=== PATIENT | male | born 1960 | race Caucasian/White ===

== ENCOUNTER 2017-11-15 00:02 | Inpatient (IN) | payer MEDICARE ==
[2017-11-15] MEDS ORDERED: ALBUTEROL SULFATE 0.083% NEB 2.5 MG/3 ML AMPUL NEB ONE (00:05)
--- NOTE | 2017-11-15 00:07 | ER Document Report ---
ED General - General Stated Complaint: RESPIRATORY DISTRESS Time Seen by Provider: 11/15/17 00:05 Cannot obtain history due to: Unstable vital signs, Altered mental status Notes: Patient is a 57-year-old male with a past medical history of COPD, continues to smoke, hypertension morbid obesity chronic low back pain, currently treated with hydromorphone 16 mg daily for his chronic low back pain who presents confused, hypoxic and in respiratory distress. EMS reports that the noted he was unconscious, lying on the ground and appeared cyanotic. On EMS arrival patient was saturating in the low 80s, difficult to wake. In route to the hospital he received steroids, nebulizer treatments and was placed on CPAP. History is otherwise limited secondary to the patient's condition at time of presentation. TRAVEL OUTSIDE OF THE [place] IN LAST 30 DAYS: No - Related Data Allergies/Adverse Reactions: No Known Allergies Allergy (Verified 11/15/17 00:15) Past Medical History - General Information source: Patient - Social History Smoking Status: Current Every Day Smoker Frequency of alcohol use: None Drug Abuse: None Lives with: Spouse/Significant other Family History: Reviewed & Not Pertinent - Past Medical History Cardiac Medical History: Reports: Hx Hypercholesterolemia, Hx Hypertension Pulmonary Medical History: Reports: Hx Asthma Endocrine Medical History: Reports: Hx Diabetes Mellitus Type 2, Hx Hypothyroidism - Immunizations Hx Diphtheria, Pertussis, Tetanus Vaccination: Yes Review of Systems - Review of Systems Notes: Constitutional: Negative for fever. HENT: Negative for sore throat. Eyes: Negative for visual changes. Cardiovascular: Negative for chest pain. Respiratory: Positive for shortness of breath. Gastrointestinal: Negative for abdominal pain, vomiting or diarrhea. Genitourinary: Negative for dysuria. Musculoskeletal: Negative for back pain. Skin: Negative for rash. Neurological: Negative for headaches, weakness or numbness. 10 point ROS negative except as marked above and in HPI. Physical Exam - Vital signs Vitals: Pulse Ox 93 11/15/17 00:03 Interpretation: Hypertensive, Tachycardic, Hypoxic Notes: PHYSICAL EXAMINATION: GENERAL: Somewhat lethargic but alert and oriented 4. Falls asleep easily. HEAD: Atraumatic, normocephalic. EYES: Pupils are pinpoint, minimally reactive bilaterally, extraocular movements intact, sclera anicteric, conjunctiva are normal. ENT: nares patent, oropharynx clear without exudates. Moist mucous membranes. NECK: Normal range of motion, supple without lymphadenopathy LUNGS: Poor air movement in all lung boyd, coarse expiratory wheezing in all lung boyd. HEART: Regular tachycardia without murmurs ABDOMEN: Morbidly obese abdomen, soft, nontender, normoactive bowel sounds. No guarding, no rebound. No masses appreciated. EXTREMITIES: Normal range of motion, trace edema in the bilateral lower extremities. No cyanosis. NEUROLOGICAL: No focal neurological deficits. Moves all extremities spontaneously and on command. PSYCH: Somewhat somnolent SKIN: Warm, Dry, normal turgor, no rashes or lesions noted. Course - Re-evaluation Re-evalutation: 11/15/17 00:06 Patient presents in acute respiratory distress, tight air movement in all lung boyd, wheezing throughout consistent with a severe COPD exacerbation. Patient is mentating, alert and oriented 4 at time of evaluation. He was admitted transition to our BiP and started on continuous in-line nebulizers. Patient has very received Solu-Medrol prior to arrival. He is received 2 duo nebulizers. 2 g of magnesium will be administered over 20 minutes. Chest x- ray and labs will be obtained. traffic monitor specialist has been applied. Patient will be assessed at regular intervals as he is very high risk for decompensation and need for intubation. 11/15/17 00:24 Patient despite being hypoxic and having coarse air movement in all lung boyd was noted to be breathing only 16-18 times per minute and having variable mental status. His pupils are noted to be pinpoint. I therefore administered 0.4 mg of naloxone slowly in 0.04 mg intervals. After 0.2 mg of naloxone was administered patient's pupils normalized he woke up and began breathing much more normal rate. His mental status cleared. At this point it appears the patient has had a COPD exacerbation but was unfortunately not able to compensate for respiratory perspective due to respiratory suppression from a heavy dose of hydromorphone which is apparently been prescribed to him by a pain management physician. Repeat lung examination continues to show coarse air movement with wheezing throughout although patient is now breathing much more efficiently pulling tidal volumes of 600 mL per breath. Will continue to monitor closely. 11/15/17 01:16 Attempted to trial the patient off BiPAP as he was pulling appropriate tidal volumes but he continued to be hypoxic and appear to be hypoventilating. He has been replaced back on BiPAP. His initial blood gases worrisome with pH of 7.18, PCO2 86.9 consistent with a respiratory acidosis. I believe this is also likely in the context of hypoventilation from narcotic overdose. He has not required repeat doses of naloxone. Will repeat a blood gas. 11/15/17 01:50 Blood gas shows improvement of his respiratory acidosis. Awaiting basic metabolic panel and then will plan for hospitalization. Patient's work of breathing is overall much improved he is tolerating BiPAP well, continues to have some faint expiratory wheezing in all lung boyd but much improved air movement. 11/15/17 02:13 I have discussed this case with Dr. Madera who has accepted the patient for admission. - Vital Signs Vital signs: Temp Pulse Resp BP Pulse Ox 97.6 F 13 112/77 92 11/15/17 00:07 11/15/17 01:31 11/15/17 01:31 11/15/17 01:31 - Laboratory Result Diagrams: 11/15/17 00:04 11/15/17 01:00 Laboratory results interpreted by me: 11/15/17 11/15/17 11/15/17 00:04 00:05 01:00 WBC 12.8 H RDW 18.3 H Seg Neutrophils % 78.5 H Lymphocytes % 12.9 L Absolute Neutrophils 10.1 H VBG pH 7.18 L* VBG pCO2 86.9 H* BUN 21 H Glucose 203 H 11/15/17 01:35 WBC RDW Seg Neutrophils % Lymphocytes % Absolute Neutrophils VBG pH 7.23 L VBG pCO2 73.0 H* BUN Glucose - Diagnostic Test Radiology reviewed: Image reviewed, Reports reviewed Radiology results interpreted by me: 11/15/17 01:52 Chest x-ray: Patchy infiltrates bilaterally. Critical Care Note - Critical Care Note Total time excluding time spent on procedures (mins): 38 Comments: Critical care time spent obtaining history from patient or surrogate, discussions with consultants, development of treatment plan with patient or surrogate, evaluation of patient's response to treatment, examination of patient , ordering and performing treatments and interventions, ordering and review of laboratory studies, re-evaluation of patient's condition, ordering and review of radiographic studies and review of old charts Discharge - Discharge Clinical Impression: COPD exacerbation, Respiratory distress Narcotic overdose Qualifiers: Encounter type: initial encounter Injury intent: accidental or unintentional Qualified Code(s): T40.601A - Poisoning by unspecified narcotics, accidental ( unintentional), initial encounter Condition: Fair Disposition: ADMITTED INPATIENT [facility] Admitted: Telemetry
[2017-11-15] MEDS ORDERED: NALOXONE HCL INJ/PF 0.4 MG/1 ML SDV ONE (00:12)
[2017-11-15] MEDS: MAGNESIUM SULFATE/D5W 1 GM/100 ML RTUPB IV SCH ×2 (00:12→00:26)
[2017-11-15 00:14] LABS: ABSOLUTE BASOPHILS # (AUTO) 0.1 10^3/uL (0.0-0.2); ABSOLUTE EOSINOPHILS # (AUTO) 0.2 10^3/uL (0.0-0.6); ABSOLUTE LYMPHOCYTES (AUTO) 1.7 10^3/uL (0.5-4.7); ABSOLUTE MONOCYTES (AUTO) 0.9 10^3/uL (0.1-1.4); ABSOLUTE NEUT (AUTO) 10.1 10^3/uL (1.7-8.2); BASOPHILS % (AUTO) 0.6 % (0-2); EOSINOPHILS % (AUTO) 1.2 % (0-6); HEMATOCRIT 45.8 % (37.9-51.0); HEMOGLOBIN 14.9 g/dL (13.5-17.0); LYMPHOCYTES % (AUTO) 12.9 % (13-45); MEAN CORPUSCULAR HEMOGLOBIN 29.6 pg (27.0-33.4); MEAN CORPUSCULAR HGB CONC 32.4 g/dL (32.0-36.0); MEAN CORPUSCULAR VOLUME 91 fl (80-97); MONOCYTES % (AUTO) 6.8 % (3-13); PLATELET COUNT 176 10^3/uL (150-450); RED BLOOD COUNT 5.01 10^6/uL (4.35-5.55); RED CELL DISTRIBUTION WIDTH 18.3 % (11.5-14.0); SEGMENTED NEUTROPHILS % (AUTO) 78.5 % (42-78); TOTAL CELLS COUNTED % (AUTO) 100 %; WHITE BLOOD COUNT 12.8 10^3/uL (4.0-10.5)
[2017-11-15] MEDS ORDERED: NALOXONE HCL INJ/PF 0.4 MG/1 ML SDV IV ONE (00:24)
--- NOTE | 2017-11-15 00:26 | RADIOLOGY REPORT (SQ) ---
EXAM DESCRIPTION: CHEST SINGLE VIEW COMPLETED DATE/TIME: 11/15/2017 12:13 am REASON FOR STUDY: sob COMPARISON: Chest x-ray 10/11/2014 EXAM PARAMETERS: NUMBER OF VIEWS: One view. TECHNIQUE: Single frontal radiographic view of the chest acquired. RADIATION DOSE: NA LIMITATIONS: EKG leads are overlying the patient's chest. FINDINGS: LUNGS AND PLEURA: There is mild bilateral interstitial thickening. Ground-glass opacities at the bilateral lung bases. No pleural effusion or pneumothorax MEDIASTINUM AND HILAR STRUCTURES: No masses. Contour normal. HEART AND VASCULAR STRUCTURES: The heart is enlarged. There is central vascular congestion. BONES: No acute findings. HARDWARE: None in the chest. IMPRESSION: Cardiomegaly with central vascular congestion and mild interstitial edema. Bibasilar gr ound-glass opacities, may represent atelectasis or pneumonia. Radiographic follow-up recommended. TECHNICAL DOCUMENTATION: JOB ID: [id number] [employer]- All Rights Reserved
[2017-11-15 00:37] LABS: NT PRO BNP 321 pg/mL (5-900)
[2017-11-15 00:42] LABS: VENOUS BLOOD BASE EXCESS 0.7 mmol/L
[2017-11-15 00:45] LABS: VENOUS BLOOD PCO2 86.9 mmHg (35-63); VENOUS BLOOD PH 7.18 (7.30-7.42)
[2017-11-15 00:46] LABS: TROPONIN I < 0.012 ng/mL
[2017-11-15] MEDS ORDERED: CEFTRIAXONE 1 GM/D5W RTU 1 GM/50 ML RTUPB IV ONE (01:15)
[2017-11-15] MEDS ORDERED: AZITHROMYCIN 250 MG TABLET PO ONE (01:16)
[2017-11-15] MEDS ORDERED: CEFTRIAXONE INJ 1000 MG VIAL ONE (01:24)
[2017-11-15 01:43] LABS: VENOUS BLOOD BASE EXCESS -0.2 mmol/L; VENOUS BLOOD HCO3 29.6 mmol/L (20-32); VENOUS BLOOD PH 7.23 (7.30-7.42)
[2017-11-15 01:47] LABS: ANION GAP 7 (5-19); BLOOD UREA NITROGEN 21 mg/dL (7-20); CALCIUM 9.4 mg/dL (8.4-10.2); CARBON DIOXIDE 28 mmol/L (22-30); CHLORIDE 103 mmol/L (98-107); GLUCOSE 203 mg/dL (75-110); POTASSIUM 4.9 mmol/L (3.6-5.0); SODIUM 138.1 mmol/L (137-145)
[2017-11-15] MEDS ORDERED: NORMAL SALINE 1000 ML 500 ML IV ONE (01:52)
[2017-11-15] MEDS ORDERED: MAG HYDROX/AL HYDROX/SIMETH SUSP 30 ML UDCUP PO PRN (02:13)
[2017-11-15] MEDS ORDERED: DEXTROSE 40% GEL 15 GM TUBE PO PRN ×2 (02:13)
[2017-11-15] MEDS ORDERED: GLUCAGON,HUMAN RECOMB 1 MG INJ IM PRN (02:13)
[2017-11-15] MEDS ORDERED: DEXTROSE 50%-WATER 25 GM/50 ML DISP.SYRIN IV PRN ×2 (02:13)
[2017-11-15] MEDS ORDERED: INSULIN LISPRO 100 UNIT/ML 3 ML VIAL SUBCUT PRN (02:13)
[2017-11-15] MEDS ORDERED: NALOXONE HCL INJ/PF 0.4 MG/1 ML SDV IV PRN (02:17)
[2017-11-15] MEDS ORDERED: CHLORPHENIRAMINE MALEATE 4 MG TABLET PO ONE (02:21)
[2017-11-15] MEDS ORDERED: CHLORPHENIRAMINE MALEATE 4 MG TABLET ONE (04:33)
[2017-11-15] MEDS ORDERED: FLUTICASONE NASAL SPRAY 50 MCG/SPRY 120 SPRAY/16 GM ONE (04:33)
--- NOTE | 2017-11-15 05:47 | PDOC H&P ---
History of Present Illness Admission Date/PCP: 11/15/17 02:36 Patient complains of: Altered mental status History of Present Illness: LEXIS THOMSON is a 57 year old male with a past medical history of morbid obesity, tobacco dependence, COPD, obstructive sleep apnea, and chronic pain prescribed 16 mg of Dilaudid daily. Patient discovered by on the floor, unresponsive and cyanotic. EMS documents pulse oxygenation of 80% he receives CPAP, oxygen, albuterol and Atrovent, Solu-Medrol in route to the emergency department. In the emergency department he is found to have myoclonus, apnea and pinpoint pupils. He receives Narcan improving his responsiveness briefly but falls back to sleep. Blood gas reveals hypercapnia in the 80s and is referred to the hospitalist for admission. Patient denies recent change of medications, chest pain, palpitations, nausea or vomiting. He states he currently feels well!! Past Medical History Cardiac Medical History: Reports: Hyperlipidema, Hypertension Pulmonary Medical History: Reports: Asthma, Chronic Obstructive Pulmonary Disease (COPD), Sleep Apnea Endocrine Medical History: Reports: Diabetes Mellitus Type 2, Hypothyroidism, Obesity Psychiatric Medical History: Reports: Alcohol Dependency, Tobacco Dependency Social History Information Source: Patient, [facility] Records Lives with: Spouse/Significant other Smoking Status: Current Every Day Smoker Frequency of Alcohol Use: Social - 4-5 beers per day, no history of DTs Drugs: None - Advance Directive Resuscitation Status: Full Code Family History Family History: COPD Parental Family History Reviewed: Yes Children Family History Reviewed: Yes Sibling(s) Family History Reviewed.: Yes Medication/Allergy Home Medications: Albuterol Sulfate [Proair HFA Inhalation Aerosol 8.5 gm MDI] 1 puff .ROUTE PRN PRN 10/11/14 Levothyroxine Sodium 137 mcg PO DAILY 10/11/14 Lisinopril 10 mg PO DAILY 10/11/14 Lorazepam [Ativan 1 mg Tablet] 1 mg PO QID #8 tab 10/11/14 Metformin HCl [Glucophage 500 mg Tablet] 500 mg .ROUTE BID 10/11/14 Simvastatin 40 mg PO DAILY 10/11/14 Allergies/Adverse Reactions: No Known Allergies Allergy (Verified 11/15/17 00:15) Review of Systems ROS unobtainable: Due to mental status Physical Exam Vital Signs: Temp Pulse Resp BP Pulse Ox 99.7 F 13 128/74 H 96 02/04/18 04:20 11/15/17 05:01 11/15/17 05:01 11/15/17 05:01 General appearance: PRESENT: cooperative, disheveled, mild distress, morbidly obese Head exam: PRESENT: atraumatic, normocephalic Eye exam: PRESENT: conjunctiva pink, EOMI, PERRLA. ABSENT: scleral icterus Ear exam: PRESENT: normal external ear exam Mouth exam: PRESENT: moist, tongue midline Neck exam: ABSENT: carotid bruit, JVD, lymphadenopathy, thyromegaly Respiratory exam: PRESENT: clear to auscultation roselia, decreased breath sounds, tachypnea. ABSENT: rales, rhonchi, wheezes Cardiovascular exam: PRESENT: RRR. ABSENT: diastolic murmur, rubs, systolic murmur Pulses: PRESENT: normal dorsalis pedis pul Vascular exam: PRESENT: normal capillary refill GI/Abdominal exam: PRESENT: normal bowel sounds, soft. ABSENT: distended, guarding, mass, organolmegaly, rebound, tenderness Rectal exam: PRESENT: deferred Extremities exam: PRESENT: full ROM. ABSENT: calf tenderness, clubbing, pedal edema Neurological exam: PRESENT: altered, oriented to person, oriented to place, oriented to time, oriented to situation, CN II-XII grossly intact. ABSENT: motor sensory deficit Psychiatric exam: PRESENT: appropriate affect, normal mood. ABSENT: homicidal ideation, suicidal ideation Skin exam: PRESENT: dry, intact, warm. ABSENT: cyanosis, rash Results Impressions: Chest X-Ray 11/15/17 00:06 IMPRESSION: Cardiomegaly with central vascular congestion and mild interstitial edema. Bibasilar ground-glass opacities, may represent atelectasis or pneumonia. Radiographic follow-up recommended. Assessment & Plan - Diagnosis (1) Narcotic overdose Qualifiers: Encounter type: initial encounter Injury intent: accidental or unintentional Qualified Code(s): T40.601A - Poisoning by unspecified narcotics , accidental (unintentional), initial encounter Is this a current diagnosis for this admission?: Yes Plan: No history of prescription medication abuse or previous episode of respiratory failure, opiate weaning initiated to avoid shreya withdrawal. Supportive care (2) COPD exacerbation Is this a current diagnosis for this admission?: Yes Plan: With significant myoclonus and hypercapnia. BiPAP and avoid sedation to optimize respiratory drive. Albuterol and Atrovent, Flonase, incentive spirometry ordered. (3) Respiratory distress Is this a current diagnosis for this admission?: Yes Plan: Secondary to #1, education for BiPAP during sleep and opiate weaning - Time Time Spent: 30 to 50 Minutes
[2017-11-15] MEDS ORDERED: HEPARIN SOD (PORCINE) 5,000 UNIT/ML 1 ML SYRINGE SUBCUT SCH (06:00)
[2017-11-15 06:07] LABS: APPEARANCE,URINE SLIGHTLY-CLOUDY; BILIRUBIN,URINE NEGATIVE (NEGATIVE); COLOR,URINE YELLOW; GLUCOSE, URINE NEGATIVE (NEGATIVE); KETONES,URINE NEGATIVE (NEGATIVE); LEUKOCYTE ESTERASE,URINE NEGATIVE (NEGATIVE); NITRITE,URINE NEGATIVE (NEGATIVE); PROTEIN,URINE 30 mg/dL (NEGATIVE); URINE SPECIFIC GRAVITY 1.021; UROBILINOGEN,URINE NEGATIVE mg/dL (<2.0)
[2017-11-15 06:14] LABS: URINE AMPHETAMINES SCREEN NEGATIVE; URINE BARBITURATES SCREEN NEGATIVE; URINE BENZODIAZEPINES SCREEN NEGATIVE; URINE COCAINE SCREEN NEGATIVE; URINE MARIJUANA (THC) SCREEN NEGATIVE; URINE METHADONE SCREEN NEGATIVE; URINE PHENCYCLIDINE SCREEN NEGATIVE
[2017-11-15] MEDS: IPRATROPIUM/ALBUTEROL 0.5-2.5 MG/3 ML AMPUL NEB SCH ×3 (07:51→20:14)
--- NOTE | 2017-11-15 08:35 | EKG REPORT ---
SEVERITY:- OTHERWISE NORMAL ECG - SINUS TACHYCARDIA : Confirmed by: Román Galarza MD 15-Nov-2017 08:34:54
[2017-11-15] MEDS ORDERED: LISINOPRIL 10 MG TABLET PO SCH (10:00)
[2017-11-15] MEDS ORDERED: SIMVASTATIN 40 MG TABLET PO SCH (10:00)
[2017-11-15] MEDS ORDERED: DOCUSATE SODIUM 100 MG CAPSULE PO SCH (10:00)
[2017-11-15] MEDS ORDERED: FLUTICASONE NASAL SPRAY 50 MCG/SPRY 120 SPRAY/16 GM NASL SCH (10:00)
[2017-11-15] MEDS ORDERED: (PENDING PHARMACY ID) (Levothyroxine Sodium [Levothyroxine Sodium] 137 MCG) PO SCH (10:00)
[2017-11-15 10:17] LABS: HEMATOCRIT 41.1 % (37.9-51.0); HEMOGLOBIN 13.4 g/dL (13.5-17.0); MEAN CORPUSCULAR HEMOGLOBIN 29.6 pg (27.0-33.4); MEAN CORPUSCULAR HGB CONC 32.5 g/dL (32.0-36.0); MEAN CORPUSCULAR VOLUME 91 fl (80-97); PLATELET COUNT 177 10^3/uL (150-450); RED BLOOD COUNT 4.52 10^6/uL (4.35-5.55); RED CELL DISTRIBUTION WIDTH 17.5 % (11.5-14.0); WHITE BLOOD COUNT 12.2 10^3/uL (4.0-10.5)
[2017-11-15 10:19] LABS: VENOUS BLOOD BASE EXCESS 1.9 mmol/L; VENOUS BLOOD HCO3 29.4 mmol/L (20-32); VENOUS BLOOD PCO2 58.1 mmHg (35-63); VENOUS BLOOD PH 7.32 (7.30-7.42)
[2017-11-15] MEDS ORDERED: METHYLPREDNISOLONE INJ 125 MG/2 ML SDV IV ONE (12:00)
[2017-11-15] MEDS ORDERED: METHYLPREDNISOLONE INJ 125 MG/2 ML SDV IV SCH (14:00)
--- NOTE | 2017-11-15 15:13 | PDOC DISCHARGE SUMMARY ---
General - Admit/Disc Date/PCP Admission Date/Primary Care Provider: 11/15/17 02:36 Discharge Date: 11/15/17 - Discharge Diagnosis (1) COPD exacerbation Is this a current diagnosis for this admission?: Yes Summary: Likely due to PNA which will be treated with cefdenir and azithromycin, COPD exacerbation to be treated with prednisone taper and duonebs, in addition to ABX as noted. (2) Narcotic overdose Is this a current diagnosis for this admission?: Yes Summary: Pt is prescribed dilaudid 4 mg po QID. He sometimes takes his dose before prescribed but states that he doenst ususally take more that his total 4 x 4 mg doses daily. Every once in a while he runs out of his meds 1 days before his next refill. I have recommended that he take 2 mg QID for now and talk to his doctor about a permanent dose reduction vs. titration off of opioids in favor of other pain control modalities. (3) Pneumonia Is this a current diagnosis for this admission?: Yes Summary: Will DC on azithromycin 500 mg po daily x 5 days and cefdinir 300 mg po q12 hrs x 7 days. (4) Respiratory distress Is this a current diagnosis for this admission?: Yes Summary: Due to PNA, COPD with exacerbation, tobacco use disorder, possible opioid misuse. Has improved. Now on [place] O2 his baseline 4 L, VBG repeat is pending. Will treat as above. - Additional Information Resuscitation Status: Full Code Discharge Diet: Cardiac, Diabetic Discharge Activity: Balance Activity w/Rest Prescriptions: Cefdinir [Omnicef 300 mg Capsule] 1 cap PO BID 7 Days #14 capsule Doxycycline Hyclate 100 mg PO BID 7 Days #14 capsule Prednisone 20 mg PO DAILY 5 Days #5 tablet Sennosides [Senna] 8.6 mg PO BID 30 Days #60 tablet Home Medications: Cefdinir [Omnicef 300 mg Capsule] 1 cap PO BID 7 Days #14 capsule 11/15/17 Doxycycline Hyclate 100 mg PO BID 7 Days #14 capsule 11/15/17 Fluoxetine HCl [Prozac] 40 mg PO DAILY 11/15/17 Fluticasone Propionate [Flonase Nasal [place] 50 Mcg/[place] 16 gm] 2 spray NASL Q12 spray.pump 11/15/17 Ipratropium/Albuterol Sulfate [Duoneb 3 ml Ampul] 3 ml NEB RTQ6 vial.neb Levothyroxine Sodium [Levothyroxine Sodium] 137 mcg PO DAILY 11/15/17 Levothyroxine Sodium [Synthroid] 150 mcg PO DAILY 11/15/17 Metformin HCl [Glucophage] 500 mg PO BID 11/15/17 Olanzapine [Olanzapine Odt] 10 mg PO DAILY 11/15/17 Prednisone 20 mg PO DAILY 5 Days #5 tablet 11/15/17 Sennosides [Senna] 8.6 mg PO BID 30 Days #60 tablet 11/15/17 Simvastatin [Zocor 40 mg Tablet] 40 mg PO DAILY 11/15/17 Simvastatin [Zocor 40 mg Tablet] 40 mg PO DAILY tablet 11/15/17 History of Present Illness History of Present Illness: LEXIS THOMSON is a 57 year old male Hospital Course Hospital Course: This is a 57 year old man with morbid obesity, COPD with exacerbation, tobacco use disorder, opioid use and with acute CAP who was admitted to hospitalist. He was brought to ED by EMS after being found obtunded at home by and 18 year old son. Received narcan which caused him to awaken, received treatment for COPD and PNA. Now patient is insisting on leaving AMA. After long discussion with patient he started to become somnolent again, bipap replaced and after several hours he has now awakened to what his states is normal. His CO2 has imrpoved to what is prob close to his baseline. His is able to ambulate around the ED normally. He has been off of bipap for about 2 hours and is on his home O2. He continues to insist on leaving AMA. He has decisional capacity, is going home with spouse who says she will be with be with him today and tonight. Also, she will now manage his dialaudid and he agrees. They agree to seek care with PCP tomorrow. They will call EMS if he worsens. He is being DCed with ABX for PNA, steroids for COPD, nicoderm patch RX. I reluctantly DC him AMA and have counseled the patient and to the best of my ability about safety going forward. Physical Exam Vital Signs: Temp Pulse Resp BP Pulse Ox 99.7 F 84 15 126/77 H 92 11/15/17 04:20 11/15/17 07:51 11/15/17 08:01 11/15/17 08:01 11/15/17 08:01 Intake & Output 11/14/17 11/15/17 11/16/17 06:59 06:59 06:59 Intake Total 1000 Output Total 650 Balance 350 General appearance: PRESENT: no acute distress, cooperative, disheveled, morbidly obese Head exam: PRESENT: atraumatic, normocephalic Eye exam: PRESENT: conjunctival injection, EOMI, periorbital swelling, PERRLA. ABSENT: scleral icterus Ear exam: PRESENT: normal external ear exam. ABSENT: bleeding Mouth exam: PRESENT: moist, neck supple Neck exam: ABSENT: lymphadenopathy Respiratory exam: PRESENT: decreased breath sounds, prolonged expiratory phas, rhonchi, symmetrical, unlabored, wheezes. ABSENT: accessory muscle use, chest wall tenderness, retraction, stridor, tachypnea Cardiovascular exam: PRESENT: RRR. ABSENT: systolic murmur Pulses: PRESENT: normal radial pulses Vascular exam: PRESENT: normal capillary refill GI/Abdominal exam: PRESENT: normal bowel sounds, soft, other - obesity, protuberant abdomen. ABSENT: ascites, diminished bowel sounds, distended, firm , guarding, rebound, rigid, tenderness Rectal exam: PRESENT: deferred Extremities exam: PRESENT: other - chronic venous stasis changes Neurological exam: PRESENT: alert, awake, oriented to person, oriented to place , oriented to time, oriented to situation, CN II-XII grossly intact. ABSENT: motor sensory deficit Psychiatric exam: PRESENT: other - frustrated/aguila/defensive over costs of hospitalization Skin exam: PRESENT: dry, intact, warm. ABSENT: cyanosis, erythema, mottled, rash Results Laboratory Results: 11/15/17 05:48 Urine Color YELLOW Urine Appearance SLIGHTLY-CLOUDY Urine pH 5.[address] [place] 1.021 Urine Protein 30 H Urine Glucose (UA) NEGATIVE Urine Ketones NEGATIVE Urine Blood MODERATE H Urine Nitrite NEGATIVE Ur Leukocyte Esterase NEGATIVE Urine WBC (Auto) 0 Urine RBC (Auto) 2 EKG Comments: sinus tachy Impressions: Chest X-Ray 11/15/17 00:06 IMPRESSION: Cardiomegaly with central vascular congestion and mild interstitial edema. Bibasilar ground-glass opacities, may represent atelectasis or pneumonia. Radiographic follow-up recommended. Qualifiers VTE patient discharged on overlapping Therapy?: No Stroke Pt being discharged on Anti-thrombolytic therapy?: No Stroke Pt being discharged on Anti-coagulation therapy?: No Stroke Pt being discharged on Statins?: No NV Pt being discharged on Aspirin therapy?: No NV Pt being discharged on Statins?: No NV Pt discharged ACEI/ARBS?: No HF Pt being discharged on ACEI for LVEF less than 40%?: No HF Pt being discharged on ARBS for LVEF less than 40%?: No HF Pt with Afib discharged with Warfarin?: No HF Pt discharged on evidence-based Beta Otis:: No Plan Discharge Plan: 1. acute hypoxemic hypercarbic respiratory failure: improved, due to PNA, COPD with exacerbation, opiate use 2. PNA: bilat lower lobes: DC on cefdinir and doxycycline, 7 days 3. COPD with exacerbation: performed tobacco cessation counseling, will DC with nicoderm patch, DC with ABX , steroids taper and pt to continue bronchodilators at home 4. leukocytosis: improved: likley due to PNA and acute inflammatory issues, DC on ABX for PNA 5. opiod use and misuse: have counseled to use dilaudid 2 mg QID vs his 4 mg QID for now. Time Spent: Greater than 30 Minutes
[2017-11-15 15:41] VITALS: BP 127/67
[2017-11-16] MEDS: IPRATROPIUM/ALBUTEROL 0.5-2.5 MG/3 ML AMPUL NEB SCH (02:12)
== END 2017-11-15 15:43 | disposition left against medical advice (07) | DRG 917 ==
LOC: ER 00:02 → EH 02:36
PROVIDERS: ADMIT Internal Medicine; ATTEND Internal Medicine
PROC: 5A09357 Assistance with Respiratory Ventilation, Less than 24 Consecutive Hours, Continuous Positive Airway Pressure (ICD-10-PCS; principal; 2017-11-15)
DX: T40.2X1A Poisoning by other opioids, accidental (unintentional), initial encounter (principal); J18.9 Pneumonia, unspecified organism; J96.02 Acute respiratory failure with hypercapnia; J44.1 Chronic obstructive pulmonary disease with (acute) exacerbation; Z68.42 Body mass index [BMI] 45.0-49.9, adult; E66.01 Morbid (severe) obesity due to excess calories; G47.33 Obstructive sleep apnea (adult) (pediatric); G89.29 Other chronic pain; I10 Essential (primary) hypertension; E78.5 Hyperlipidemia, unspecified; E11.9 Type 2 diabetes mellitus without complications; F10.20 Alcohol dependence, uncomplicated; F17.210 Nicotine dependence, cigarettes, uncomplicated; M54.5 Low back pain; Z79.891 Long term (current) use of opiate analgesic; Y92.009 Unspecified place in unspecified non-institutional (private) residence as the place of occurrence of the external cause
CPT/HCPCS: 36415; 71045; 80048; 80307; 81001; 82803; 83880; 84443; 84484; 85025; 85027; 87040; 93005; 93010; 94640; 94660; 96365; 96367; 96375; 99291; J0696; J1644; J2310; J2930; J3475; J7030; J7620

== ENCOUNTER 2017-12-31 11:12 | Emergency (ER) | payer MEDICARE ==
[2017-12-31] MEDS ORDERED: KETOROLAC TROMETHAMINE 60 MG/2 ML SDV IM ONE (12:03)
[2017-12-31] MEDS ORDERED: DEXAMETHASONE SOD PHOS INJ 10 MG/1 ML VIAL IM ONE (12:03)
--- NOTE | 2017-12-31 12:44 | RADIOLOGY REPORT (SQ) ---
EXAM DESCRIPTION: KNEE LEFT 4 VIEW COMPLETED DATE/TIME: 12/31/2017 12:29 pm REASON FOR STUDY: increased pain COMPARISON: None. NUMBER OF VIEWS: Four views. TECHNIQUE: AP, lateral, and both oblique radiographic images acquired of the left knee. LIMITATIONS: None. FINDINGS: MINERALIZATION: Normal. BONES: No acute fracture or dislocation. No worrisome bone lesions. JOINT: Mild medial compartment and patellofemoral compartment joint space narrowing. No knee joint e ffusion. No calcified intra-articular loose bodies. SOFT TISSUES: No soft tissue swelling. No radio-opaque foreign body. OTHER: No other significant finding. IMPRESSION: No acute fracture. 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
--- NOTE | 2017-12-31 12:55 | ER Document Report ---
ED Extremity Problem, Lower - General Chief Complaint: Knee Pain Stated Complaint: LEG KNEE PAIN Time Seen by Provider: 12/31/17 11:32 Mode of Arrival: Ambulatory Information source: Patient Notes: 67-year-old male presents to ED for complaint of left knee pain. He states he has had pain in his knee for years it is just been worse for the last week or so. He states it is painful to walk. He states it is swollen and has been taken ibuprofen at home and had helped. He is able to walk with a steady gait. He was treated with Toradol and Decadron in the emergency room and sent for an x-ray. He denies any injury in the fall or any redness. TRAVEL OUTSIDE OF THE [place] IN LAST 30 DAYS: No - HPI Patient complains to provider of: Pain, Swelling Location: Knee - Left Occurred: Last week - Has a history of chronic pain to this knee Onset/Duration: Persistent Quality of pain: Sharp, Throbbing Severity: Severe Pain Level: 5 Recent injury: No Associated symptoms: Painful ambulation Exacerbated by: Movement, Walking Relieved by: Nothing - Related Data Allergies/Adverse Reactions: No Known Allergies Allergy (Verified 11/15/17 00:15) Past Medical History - General Information source: Patient - Social History Smoking Status: Current Every Day Smoker Cigarette use (# per day): Yes - 15 cigarettes a day Chew tobacco use (# tins/day): No Smoking Education Provided: Yes - 4 minutes Frequency of alcohol use: Occasional Drug Abuse: None Occupation: Retired construction Lives with: Family Family History: Arthritis, COPD, Thyroid Disfunction. denies: CAD, CVA, DM, Hyperlipidemia, Hypertension, Malignancy Patient has suicidal ideation: No Patient has homicidal ideation: No - Past Medical History Cardiac Medical History: Reports: Hx Hypercholesterolemia, Hx Hypertension Pulmonary Medical History: Reports: Hx Asthma, Hx COPD, Hx Sleep Apnea EENT Medical History: Reports: None Neurological Medical History: Reports: None Endocrine Medical History: Reports: Hx Diabetes Mellitus Type 2, Hx Hypothyroidism Renal/ Medical History: Reports: None Malignancy Medical History: Reports None Musculoskeltal Medical History: Reports Hx Arthritis, Reports Hx Musculoskeletal Deformity - Degenerative disc disease, Reports Hx Musculoskeletal Trauma Skin Medical History: Reports None Psychiatric Medical History: Reports: None Traumatic Medical History: Reports: Hx Fractures - Left elbow Infectious Medical History: Reports: None Past Surgical History: Reports: Hx Oral Surgery - [place] teeth, Hx Orthopedic Surgery - ORIF left elbow and was removed from surgery lumbar area - Immunizations Immunizations up to date: Yes Hx Diphtheria, Pertussis, Tetanus Vaccination: Yes Review of Systems - Review of Systems Constitutional: No symptoms reported EENT: No symptoms reported Cardiovascular: No symptoms reported Respiratory: No symptoms reported Gastrointestinal: No symptoms reported Genitourinary: No symptoms reported Male Genitourinary: No symptoms reported Musculoskeletal: Joint pain - Left knee, Joint swelling Skin: No symptoms reported Hematologic/Lymphatic: No symptoms reported Neurological/Psychological: No symptoms reported -: Yes All other systems reviewed and negative Physical Exam - Vital signs Vitals: Temp Pulse Resp BP Pulse Ox 97.3 F 89 14 128/82 H 93 12/31/17 11:30 12/31/17 11:30 12/31/17 11:30 12/31/17 11:30 12/31/17 11:30 Interpretation: Normal - General General appearance: Appears well, Alert - HEENT Head: Normocephalic, Atraumatic Eyes: Normal Pupils: PERRL - Respiratory Respiratory status: No respiratory distress Chest status: Nontender Breath sounds: Normal Chest palpation: Normal - Cardiovascular Rhythm: Regular Heart sounds: Normal auscultation Murmur: No - Abdominal Inspection: Normal Distension: No distension Bowel sounds: Normal Tenderness: Nontender Organomegaly: No organomegaly - Back Back: Normal, Nontender - Extremities General upper extremity: Normal inspection, Nontender, Normal color, Normal ROM , Normal temperature General lower extremity: Normal inspection, Normal color, Normal temperature. No: Liz's sign Knee: Tender, Pain with ROM, Patellar tendon intact, Tender joint line, Other - Right knee actually larger than left left knee is the one he is complaining of pain. No: Abrasion, Deformity, Dislocation, Drawer's test instability, Ecchymosis, Instability, Joint effusion, Laceration, Laxity with valgus stress, Laxity with varus stress, Popliteal fossa tender, Unable to bear weight - Painful ambulation Ankle: Normal, Nontender Foot: Normal, Nontender - Neurological Neuro grossly intact: Yes Cognition: Normal Orientation: AAOx4 [place] Coma Scale Eye Opening: Spontaneous [place] Coma Scale Verbal: Oriented [place] Coma Scale Motor: Obeys Commands [place] Coma Scale Total: 15 Speech: Normal Motor strength normal: LUE, RUE, LLE, RLE Sensory: Normal - Psychological Associated symptoms: Normal affect, Normal mood - Skin Skin Temperature: Warm Skin Moisture: Dry Skin Color: Normal Course - Re-evaluation Re-evalutation: 12/31/17 13:03 57-year-old male presented to ED for complaint of left knee pain. He states the pain is been for well over a year but is been worse for the last week. He was treated for pain with Toradol and Decadron IM. A x-ray was completed. X- ray results were no acute injuries but he does have osteoarthritis to the patellofemoral and medial compartments. No knee effusion shown loose bodies noted. Patient stated that he had swelling to the left knee but actually the right knee is larger than the left. X-rays were discussed with patient and written report given to patient. He was recommended to follow-up with orthopedics. Patient was given instructions on warm packs elevation knee exercises. She was able to verbalize understanding of instructions. - Vital Signs Vital signs: Temp Pulse Resp BP Pulse Ox 97.3 F 89 14 128/82 H 93 12/31/17 11:30 12/31/17 11:30 12/31/17 11:30 12/31/17 11:30 12/31/17 11:30 - Diagnostic Test Radiology reviewed: Image reviewed, Reports reviewed Discharge - Discharge Clinical Impression: Arthritis of knee, left HTN (hypertension) Qualifiers: Hypertension type: unspecified Qualified Code(s): I10 - Essential (primary) hypertension Condition: Stable Disposition: HOME, SELF-CARE Instructions: Family Physicians / Practices Additional Instructions: Arthritis Your symptoms are due to arthritis. Arthritis is an inflammation of the joints. There are many types -- osteoarthritis (due to "wear and tear"), auto- immmune arthritis (such as rheumatoid, lupus, Barb's, and others), and crystal -induced arthritis (such as gout and pseudogout). The physician's examination, combined with laboratory tests, will determine the cause of your arthritis. All types of arthritis are treated with antiinflammatory medications. Other medication may be required for special types of arthritis, or if your problem does not respond to the antiinflammatory medicine. Local warmth may be helpful. Move the involved joints through the full range of motion daily. Mild exercise is usually still possible for most persons with arthritis (ask your physician). Swimming provides good exercise without damaging the joints. Contact the physician if you are worsening in any way. Warm Packs After approximately two days, apply gentle heat (such as a heating pad or hot water bottle) for about 20 to 30 minutes about every two hours -- at least four times daily. Warmth and elevation will help you make a more rapid recovery , and will ease the pain considerably. Do not use HOT heat, and never apply heat for longer than 30 minutes. The continuous heat can invisibly damage skin and muscles -- even when no burn is seen on the surface. Damaged muscles can make you MORE sore. Anti-Inflammatory Medication You have received a prescription for an antiinflammatory agent. This is an excellent, safe drug for pain control. In addition, it has potent antiinflammatory effects which are beneficial, especially in the treatment of injuries, arthritis, or tendonitis. It's best to take this medicine with food. Persons with ulcer disease or allergy to aspirin should notify their physician of this before taking this drug. Take the medication exactly as prescribed. Don't take additional doses unless instructed to do so by your doctor. If you develop wheezing, shortness of breath, hives, faintness, stomach pain, vomiting, or dark black stools, return for re-evaluation at once. FOLLOW-UP CARE: If you have been referred to a physician for follow-up care, call the physician s office for an appointment as you were instructed or within the next two days. If you experience worsening or a significant change in your symptoms, notify the physician immediately or return to the Emergency Department at any time for re-evaluation. Forms: Elevated Blood Pressure, Smoking Cessation Education Referrals: TERRI CEE MD [ACTIVE STAFF] - Follow up as needed
[2017-12-31 13:05] VITALS: BP 132/80
== END 2017-12-31 13:05 | disposition home or self-care (01) ==
LOC: ER 11:12
DX: M17.11 Unilateral primary osteoarthritis, right knee (principal); I10 Essential (primary) hypertension; F17.210 Nicotine dependence, cigarettes, uncomplicated; E78.00 Pure hypercholesterolemia, unspecified; J44.9 Chronic obstructive pulmonary disease, unspecified; E03.9 Hypothyroidism, unspecified; E11.9 Type 2 diabetes mellitus without complications
CPT/HCPCS: 99406; 99283; 96372; 73562; J1885; J1100